=== PATIENT | male | born 1995 | race Caucasian/White ===

== ENCOUNTER 2020-03-30 18:03 | Emergency (ER) | payer OTHER ==
[~2020-03-30] VITALS: Ht 188 cm; Wt 88.5 kg
[~2020-03-30 18:03] MED LIST: ALBU90OI6 INH; Amoxil400 MG/5 M PO; BENZ100A PO; ERYT.5TO RIGHTEYE; Hydroxyzine HCl50 MG PO; LORTAB 10 MG-3473 ML PO
[2020-03-30] MEDS ORDERED: DIAZ5 PO (18:54)
[2020-03-30] MEDS ORDERED: Norco 5-325 Ta1 EACH PO (18:55)
== END 2020-03-30 20:29 | disposition home or self-care (01) ==
LOC: ER 18:03
DX: S83.92XA Sprain of unspecified site of left knee, initial encounter (principal); F41.9 Anxiety disorder, unspecified; J45.909 Unspecified asthma, uncomplicated; F17.210 Nicotine dependence, cigarettes, uncomplicated; Z79.899 Other long term (current) drug therapy; Z87.828 Personal history of other (healed) physical injury and trauma; X58.XXXA Exposure to other specified factors, initial encounter; Y93.89 Activity, other specified
CPT/HCPCS: 99283